=== PATIENT | male | born 1940 | race Caucasian/White ===

== ENCOUNTER 2020-06-05 05:11 | Observation (INO) ==
--- NOTE | 2020-05-11 08:44 | PAT Medication Instructions ---
Medication Instructions Date of Service May 11, 2020 Home Medications atorvastatin 40 mg PO PM lisinopril-hydrochlorothiazide 1 tab PO QPM Take evening before surgery atorvastatin 40 mg PO PM lisinopril-hydrochlorothiazide 1 tab PO QPM NOTHING TO EAT OR DRINK AFTER MIDNIGHT. Other Notes If you have any questions please call us at [phone] or [phone] or [phone] or [phone]
--- NOTE | 2020-05-11 10:23 | Anesthesiology Consultation ---
Date of Service May 11, 2020 Assessment & Plan (1) Encounter for pre-operative examination: COVID Status: As of 05/11 assessment, patient denies travel to endemic area, known exposure/sick contacts, or symptoms of COVID19. Patient instructed that they and their household members must follow strict social distancing guidelines, wear a mask in public and avoid travel for 14 days prior to surgery. Preoperative COVID19 testing to be completed prior to surgery per surgeon's arra ngements. Patient made aware to self-isolate as much as possible between COVID testing and surgery. Chart Review Chart Review: Acceptable Risk for Surgery (pending pcp clearance 05/15 ) and Patient seen in Pre Admission Testing Teaching & Discussion Instructed NPO after midnight before surgery, except medications with 15 cc of water. Medication instructions provided according to the PAT guidelines. History Surgery Operation Date: 06/05/20 07:00 Proposed Procedures p Left Anterior Total Hip Arthroplasty - Ozzie Dietz DO Height/Weight Height: 5 ft 10 in Weight: 94.3 kg Allergies Allergy/AdvReac Type Severity Reaction Status Date / Time No Known Allergies Allergy Verified 04/28/20 14:16 Medications Home Medications Medication Instructions Recorded Confirmed Last Taken atorvastatin 40 mg PO PM 04/28/20 04/28/20 Unknown lisinopril-hydrochlorothiazide 1 tab PO QPM 04/28/20 04/28/20 Unknown Past Medical History Medical History Arthritis History of prostate cancer s/p prostatectomy Hyperlipidemia Hypertension Exercise / Class Metabolic Activity II 4-5 Yardwork/Stairs/Walk up hill (Prior to this level of severity of hip pain, pt was doing yard work, no SOB or CP with 1 FOS) Past Surgical History Surgical History 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 Physical Exam Vital Signs BP: 127/77 P: 86bpm SPO2: 95% RA T: 98.2 F R: 16 ENMT Mouth: + edentulous Thyromental Distance: > or= 3.5 Finger Breadths Mallampati Class: I Neck + short neck, + limited neck extension (mildly) and + facial hair (short chandler) Respiratory normal respiratory effort Auscultation: lungs clear to auscultation bilaterally Cardiovascular Rate/Rhythm: regular rate and regular rhythm Heart Sounds: + murmur (?very soft systolic) Vessels: no carotid bruit Extremities: no edema Testing Laboratory Results 05/11/20 10:35 05/11/20 10:35 PT 10.3 Seconds (9.0-12.0) 05/11/20 10:35 INR 1.0 (0.9-1.1) 05/11/20 10:35 APTT 27.9 Seconds (21.0-31.0) 05/11/20 10:35 Hemoglobin A1c 6.2 % (4.5-5.6) H 05/11/20 10:35 Urine Color Yellow 05/11/20 10:35 Urine Appearance Clear (Clear) 05/11/20 10:35 Urine pH 5.5 (4.5-7.5) 05/11/20 10:35 Ur Specific [place] 1.017 (1.000-1.030) 05/11/20 10:35 Urine Protein Negative (Negative) 05/11/20 10:35 Urine Glucose (UA) Negative (Negative) 05/11/20 10:35 Urine Ketones Negative (Negative) 05/11/20 10:35 Urine Nitrite Negative (Negative) 05/11/20 10:35 Ur Leukocyte Esterase Negative (Negative) 05/11/20 10:35 Blood Type A Positive 05/11/20 10:35 Antibody Screen NEGATIVE 05/11/20 10:35 Electrocardiogram Date: 05/11/20 Findings: + NSR @ (79bpm) Left axis deviation. NSIVCD. Chest X-Ray Date: 05/11/20 1. Mild cardiac enlargement with no active disease in the chest. 2. 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 Clinical correlation will be required. *SpO2 WNL @ PAT. This result was faxed to PCP for continuity of care, to be reviewed at pre-op appointment 05/15.
--- NOTE | 2020-05-11 11:06 | XRay Report ---
TWO VIEW CHEST CLINICAL HISTORY: Preoperative examination. FINDINGS: PA and lateral chest radiographs are obtained. No prior studies are available for compariso n at the time of dictation. The heart is mildly enlarged noting atherosclerotic calcification of the thoracic aorta. The pulmonary vasculature is noncongested. Bilateral calcified pleural plaques are i dentified. Scarring/atelectasis is seen at the lung bases. No airspace consolidation or pleural effus ion is seen. There is no pneumothorax. The skeletal structures are osteopenic. The bony thorax appear s intact. Degenerative changes noted in the thoracic spine. IMPRESSION: 1. Mild cardiac enlargement with no active disease in the chest. 2. 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 Clinical cor relation will be required. ACT 112: Negative or not required by law. Electronically signed by: Nikhil North M.D. 05/11/2020 11:05 AM
[2020-05-11 12:14] LABS: Basophils # (auto) 0.04 K/uL (0-0.2); Basophils % (auto) 0.4 %; Eosinophils # (auto) 0.42 K/uL (0-0.5); Eosinophils % (auto) 4.7 %; Hematocrit (blood only) 44.2 % (42-52); Hemoglobin 15.4 g/dL (14.0-18.0); Immature Granulocytes # (auto) 0.05 K/uL (0.00-0.02); Immature Granulocytes % (auto) 0.6 %; Lymphocytes # (auto) 1.28 K/uL (1.2-3.4); Lymphocytes % (auto) 14.2 %; Mean Corpuscular Hemoglobin 31.6 pg (25-34); Mean Corpuscular Hgb Conc 34.8 g/dL (32-36); Mean Corpuscular Volume 90.8 fL (80-100); Mean Platelet Volume 9.2 fL (7.4-10.4); Monocytes # (auto) 0.92 K/uL (0.11-0.59); Monocytes % (auto) 10.2 %; Neutrophils # (auto) 6.31 K/uL (1.4-6.5); Neutrophils % (auto) 69.9 %; Platelet Count 310 K/uL (130-400); RDW Coefficient of Variation 13.4 % (11.5-14.5); RDW Standard Deviation 44.3 fL (36.4-46.3); Red Blood Count 4.87 M/uL (4.7-6.1); White Blood Count 9.02 K/uL (4.8-10.8)
[2020-05-11 12:15] LABS: Appearance Urine Clear (Clear); Bilirubin Urine Negative (Negative); Blood Urine Negative (Negative); Color Urine Yellow; Glucose Urine UA Negative (Negative); Ketones Urine Negative (Negative); Leukocyte Esterase Urine Negative (Negative); Nitrite Urine Negative (Negative); Protein Urine Negative (Negative); Specific Gravity Urine 1.017 (1.000-1.030); Urobilinogen Urine Negative (Negative); pH Urine 5.5 (4.5-7.5)
[2020-05-11 12:25] LABS: Partial Thromboplastin Time 27.9 Seconds (21.0-31.0); Prothrombin Time 10.3 Seconds (9.0-12.0)
[2020-05-11 12:45] LABS: Estimated Average Glucose 131 mg/dl; Hemoglobin A1C 6.2 % (4.5-5.6)
[2020-05-11 13:35] LABS: Albumin Level 3.8 gm/dl (3.4-5.0); BUN Creatinine Ratio 10.2 (10-20); Creatinine Clr Calc Pharmacy 59.6 ml/min; Est GFR (Non-African American) 60.4; Potassium 4.3 mmol/L (3.5-5.1)
--- NOTE | 2020-05-11 17:53 | Electrocardiogram Report ---
Test Reason : Blood Pressure : / mmHG Vent. Rate : 079 BPM Atrial Rate : 079 BPM P-R Int : 178 ms QRS Dur : 122 ms QT Int : 398 ms P-R-T Axes : 072 -51 052 degrees QTc Int : 456 ms Normal sinus rhythm Left axis deviation Non-specific intra-ventricular conduction delay Abnormal ECG No previous ECGs available Confirmed by Taiwo Padilla ([id number]) on 05/11/2020 5:53:12 PM Referred By: Ozzie Dietz Confirmed By:Rohit Padilla
--- NOTE | 2020-06-03 09:33 | History & Physical Report ---
Date of Service June 05, 2020 Assessment & Plan (1) Degenerative joint disease of left hip: I have indicated the patient for left anterior total hip replacement. The risks, benefits and complications of surgery were explained to the patient which include but not limited to infection, acute blood loss, DVT/PE, injury to nerves, vessels, bone, soft tissue, arthrofibrosis, chronic pain, failure of the prosthesis, hip dislocation, leg length discrepancy, need for additional surgery, cardiac and pulmonary events and . The patient wished to proceed with surgery and informed consent was obtained at this time. We will plan for 325mg ASA BID post-operatively for DVT prophylaxis. Upon discharge the patient will be discharged home with home health services. Appropriate clearances by PCP were obtained. Patient is asymptomatic for UTI. History of Present Illness Chief Complaint: Left hip Pain/DJD Primary Care Provider: Earle Bush MD The patient is a 79 year old male who presents with complaints of severe left hip pain and DJD. The patient has failed outpatient conservative treatments to this point which included NSAIDS, home exercise/walking program, activity modification, patient declined further conservative treatments including IA corticosteroid injections. The patient's pain and limited function have pr ogressed to the point where they severely hinder their activities of daily living and they no longer tolerate exercise programs. They are requesting to proceed with total hip replacement surgery. 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 H/O prostatectomy History of cataract surgery R/L History of colonoscopy WITH POLYP EXCISION History of herniorrhaphy R/L Social History Smoking Status: Former smoker Smoking End Date: QUIT 15 YRS AGO; Second Hand Exposure: No; Do You Dip or Chew Tobacco: No; Hx Alcohol Use: No Hx Substance Use: No Preferred Language: Croatian Communication Ability: Effective Supervisor Gear Repair Required: No Beliefs That Will Affect Care: None Current Living Situation: Spouse Other Information That Helps Us Care for You: No Feels Safe at Home: Yes Safety Concerns: Feels Safe At This Time Assistive Devices: Glasses Review of Systems Review of Systems: All systems reviewed & are unremarkable except as noted in HPI & below Constitutional: as per Subjective / HPI Physical Exam Physical Exam: LLE NVSI +EHL/FHL/TA/GS SILT grossly, +2 DP pulse, compartments soft NT, limited painful ROM of the hip, antalgic gait. Constitutional: WD/WN, vitals as above Eyes: PERRL, conjunctivae normal, anicteric sclerae ENMT: external ear and nose normal, oropharynx normal Neck: trachea midline, no thyromegaly Respiratory: normal respiratory effort, lungs clear to auscultation Cardiovascular: RRR, no murmur, no edema Gastrointestinal (Abdomen): normal bowel sounds, soft, nontender, no hepatosplenomegaly Musculoskeletal: no cyanosis or clubbing, extremities motor strength 5/5 Skin: no rashes, warm and dry Neurologic: patellar DTR's 2+ bilat, sensation intact Psychiatric: A+Ox3, euthymic affect Lymphatic: no cervical or axillary lymphadenopathy Results & Data Results & Data ([facility]) Diagnostic Findings Multiple views of the hip demonstrates severe DJD with complete loss of the joint space. +osteophytes, +sclerosis, +subchondral cysts. Pre Admission Testing Addendum Laboratory Results 05/11/20 10:35 05/11/20 10:35 PT 10.3 Seconds (9.0-12.0) 05/11/20 10:35 INR 1.0 (0.9-1.1) 05/11/20 10:35 APTT 27.9 Seconds (21.0-31.0) 05/11/20 10:35 Hemoglobin A1c 6.2 % (4.5-5.6) H 05/11/20 10:35 Urine Color Yellow 05/11/20 10:35 Urine Appearance Clear (Clear) 05/11/20 10:35 Urine pH 5.5 (4.5-7.5) 05/11/20 10:35 Ur Specific [place] 1.017 (1.000-1.030) 05/11/20 10:35 Urine Protein Negative (Negative) 05/11/20 10:35 Urine Glucose (UA) Negative (Negative) 05/11/20 10:35 Urine Ketones Negative (Negative) 05/11/20 10:35 Urine Nitrite Negative (Negative) 05/11/20 10:35 Ur Leukocyte Esterase Negative (Negative) 05/11/20 10:35 Blood Type A Positive 05/11/20 10:35 Antibody Screen NEGATIVE 05/11/20 10:35 05/11/20 10:35 Urine Culture - Final Urine,Clean Catch Alpha strep. not enterococcus
[2020-06-05] MEDS ORDERED: GABAPENTIN 300 MG CAP PO SCH (06:00)
[2020-06-05] MEDS ORDERED: TRANEXAMIC ACID 1,000 MG **IV Intra-op IV SCH (06:00)
[2020-06-05] MEDS ORDERED: TRANEXAMIC ACID 1,000 MG **IV Pre-op IV SCH (06:00)
[2020-06-05] MEDS ORDERED: ACETAMINOPHEN 500 MG TAB PO SCH (06:00)
[2020-06-05] MEDS ORDERED: METOCLOPRAMIDE HCL 10 MG TABLET PO SCH (06:00)
[2020-06-05] MEDS ORDERED: dexAMETHasone 4 MG TAB PO SCH (06:00)
[2020-06-05] MEDS ORDERED: ROPIVACAINE 0.5% HCL/PF 150 MG, BUPIVACAINE 0.5% MPF 30 ML, EPINEPHrine 30MG/30ML (OR U... INSTIL SCH (06:00)
[2020-06-05] MEDS ORDERED: LR 500ML BOLUS, THEN 15ML/HR IV SCH (06:00)
[2020-06-05] MEDS ORDERED: ceFAZolin 2000MG 2,000 MG/15 ML SYR IV SCH (06:00)
[2020-06-05] MEDS ORDERED: FAMOTIDINE 20 MG TAB PO SCH (06:00)
[2020-06-05] MEDS ORDERED: CeleBREX 200 MG CAP PO SCH (06:00)
[2020-06-05] MEDS ORDERED: BUPIVACAINE 0.5 % 5 MG/1 ML PF 10ML VIAL ONE (06:29)
[2020-06-05] MEDS ORDERED: PROPOFOL IV EMULSION 10 MG/ML 20 ML VIAL IV ONE ×2 (06:33→09:07)
[2020-06-05] MEDS ORDERED: MIDAZOLAM HCL 1 MG/ML 2ML VIAL ONE (06:33)
[2020-06-05] MEDS ORDERED: LIDOCAINE HCL 2% 2 ML VIAL/AMP(20MG/ML) INFIL ONE (06:33)
[2020-06-05] MEDS ORDERED: ORTHO JOINT ANESTHETIC ONE (06:36)
[2020-06-05] MEDS ORDERED: BACITRACIN INJ 50,000 UNIT VIAL ONE (06:36)
--- NOTE | 2020-06-05 06:43 | History & Physical Bridge Note ---
Date of Service June 05, 2020 History & Physical Bridge Note I have examined the patient, reviewed the History & Physical and in the interval since the performance of the History & Physical I have noted the following changes of clinical significance: no changes noted
[2020-06-05] MEDS ORDERED: ATROPINE SULFATE 0.1 MG/ML 10ML SYR IV PRN (06:54)
[2020-06-05] MEDS ORDERED: ePHEDrine sulfate 50 MG/ML AMP IV PRN (06:54)
[2020-06-05] MEDS ORDERED: fentaNYL citrate 100 MCG/2 ML VIAL IV PRN (06:54)
[2020-06-05] MEDS ORDERED: ONDANSETRON INJ 2 MG/ML 2 ML VIAL IV PRN ×2 (06:54→11:06)
[2020-06-05] MEDS ORDERED: PHENYLEPHRINE 100MCG/ML 5ML SYR ONE (07:47)
[2020-06-05] MEDS ORDERED: ePHEDrine sulfate 50 MG/ML SYR ONE (08:44)
--- NOTE | 2020-06-05 09:11 | Post Operative Brief Note ---
Immediate Post Op Note v1 Date of Surgery June 05, 2020 Pre & Post Diagnosis Operation Date: 06/05/20 07:00 Pre-Op Diagnosis: Unilateral Primary Osteoarthritis left hip Post-Op Diagnosis: Unilateral Primary Osteoarthritis left hip I identified the patient and participated in the time-out.: Yes Procedure Operation Date: 06/05/20 07:00 Actual Procedures p Left Anterior Total Hip Arthroplasty - uncemented(Left) - Ozzie Dietz DO Surgeon Ozzie Dietz DO Patient Transportation Driver Tank Rios Estimated Blood Loss 170 Findings Consistent with Post-Op Diagnosis Fluids 1500 cc LR Specimens femoral head Anesthesia Type Spinal MAC Complications none Disposition Disposition: Recovery Room Overlapping Procedure I was present for: the critical portions of procedure. I was immediately available: during the entire case. Back up surgeon: was not required during procedure.
--- NOTE | 2020-06-05 09:15 | Operative Report ---
Post Operative Report Pre & Post Diagnosis Operation Date: 06/05/20 07:00 Pre-Op Diagnosis: Unilateral Primary Osteoarthritis left hip Post-Op Diagnosis: Unilateral Primary Osteoarthritis left hip I identified the patient and participated in the time-out.: Yes Procedure Operation Date: 06/05/20 07:00 Actual Procedures p Left Anterior Total Hip Arthroplasty - uncemented(Left) - Ozzie Dietz DO Surgeon Ozzie Dietz DO Industrial Truck Mechanic Tank Rios Estimated Blood Loss 170 Findings Consistent with Post-Op Diagnosis Specimens Femoral head Anesthesia Type Spinal MAC Complications none Disposition Disposition: Recovery Room Indications The patient is a 79-year-old male who presents with severe progressive left hip DJD who has failed outpatient conservative treatments. I indicated the patient for a total hip replacement and the risks and benefits were explained in detail which included but not limited to infection, bleeding, blood clot, damage to surrounding bone, nerves, vessels, soft tissue, hip dislocation, failure of the prosthesis, leg length discrepancy, need for additional surgery and . The patient agreed to proceed with replacement of the hip and informed consent was obtained. Appropriate clearances were obtained. Description of Procedure COMPONENTS USED: [employer] hip system: Acetabulum size 52, femur size 5 high offset, femoral head 36-3, liner 52x36, acetabular screw 25 mm x 1. DESCRIPTION OF PROCEDURE: Following satisfactory spinal anesthesia, the patient was placed supine on the OR table. The right leg was placed in the well leg mann and the left leg in the traction device. The left leg was prepared with ChloraPrep and draped sterilely. A surgical timeout was performed, patient identified and site yolanda verified. Appropriate antibiotics were given. A standard anterior approach in the interval between the sartorius and tensor muscles was performed. Dissection was carried down through subcutaneous tis sues. Electrocautery was utilized for hemostasis. Circumflex femoral vessels were identified, tied and ligated. The anterior capsular fat pad was removed and the capsulotomy was performed revealing the arthritic femoral neck and head. A femoral neck cut was made with reciprocating saw and the bone fragments removed. The acetabular self-retraining retractor was placed. Acetabular reaming was completed under fluoroscopic guidance, a 52 shell was impacted into an anatomic position and secured with a dome screw. Local anesthetic was placed and following irrigation, the polyethylene liner was placed. The femur was placed into position of external rotation, extension and adduction. Femoral canal was prepared up to the size 5 high offset. Trial reduction with a 36-3 neck length head showed good soft tissue tension, leg lengths restored, and good fit and fill of the proximal canal using fluoroscopic landmarks. The hip was dislocated. The trial component was removed. The final implant was placed. The hip was irrigated with sterile saline solution and reduced. A Betadine soak was performed. After 3 minutes, the hip was once more irrigated with copious sterile saline solution with bacitracin. Cathie-incisional soft tissue was injected utilizing [place] [employer]omix which includes a combination of Ropivicaine 0.5% 150mg, Bupivicaine 0.5%/Epinephrine 1:200,000 30ml, Toradol 30mg, Dexamethasone 4mg, Ketamine 10mg, Clonidine 100mcg and NSS 30ml solution. The capsule was then closed with 1-0 Vicryl interrupted figure of eight sutures. The fascia was closed with a running suture of #1 Vicryl, the subcutaneous tissues with 2-0 Vicryl and the skin with a running subcuticular stitch of 3-0 V-Loc. Dermabond prineo and a dry dressing were applied. The patient tolerated the procedure well and was transported to PACU in stable condition. Due to the complex nature of the procedure, the entire surgery was performed with the operational assistance of Tank rios PA-C. The medical office assistant instructor, under direct supervision, was involved in the actual performance of all aspects of the surgical procedure including patient positioning, hemostasis, tissue retraction, instrument management and wound closure. I attest to the content of the Intraoperative Record and any orders documented therein. Any exceptions are noted below.
--- NOTE | 2020-06-05 09:22 | Fluoroscopy Report ---
FL hip LT 1V CLINICAL HISTORY: LEFT ANTERIOR HIP COMPARISON STUDY: None. FLUOROSCOPY TIME: 53 seconds. FINDINGS: 2 fluoroscopic spot images of the left hip demonstrate a left total arthroplasty. The hardw are is intact. No fracture or dislocation. IMPRESSION: Fluoroscopy provided for left total hip arthroplasty. ACT 112: Negative or not required by law. Electronically signed by: Mak Rust M.D. 06/05/2020 9:21 AM
--- NOTE | 2020-06-05 10:11 | XRay Report ---
XR hip 1V LT w pelvis HISTORY: 79 years-old Male IN PACU - A/P PELVIS and LATERAL HIP left hip total joint arthroplasty COMPARISON: Fluoroscopic images of the left hip of same day TECHNIQUE: AP view of the pelvis with 2 views of the left hip FINDINGS: Moderate right hip osteoarthritis. Left hip total joint arthroplasty demonstrates satisfactory alignm ent. No acute fracture or unexpected opaque foreign body. Expected postsurgical soft tissue swelling and deep tissue air. IMPRESSION: Left hip total joint arthroplasty with expected postoperative changes. ACT 112: Negative or not required by law. The above report was generated using voice recognition software. It may contain grammatical, syntax o r spelling errors. Electronically signed by: Morgan Renee M.D. 06/05/2020 10:10 AM
--- NOTE | 2020-06-05 10:27 | Anesthesiology Progress Note ---
Date of Service June 05, 2020 Anesthesia Post Procedure Vital Signs Vital Signs: Temp Pulse Pulse Resp BP BP Pulse Ox 06/05/20 10:10 84 16 107/74 96 06/05/20 10:00 81 17 104/71 96 06/05/20 09:50 82 20 110/62 98 06/05/20 09:40 87 20 101/64 97 06/05/20 09:30 87 17 111/69 98 06/05/20 09:22 97.2 F L 95 H 19 95/65 L 95 06/05/20 06:25 97.9 F 70 95 H 145/86 H 95 06/05/20 05:37 98.2 F 82 95 H 154/88 H 95 Transfer of Care Handoff Completed per policy Notes Mental Status: alert / awake / arousable and participated in evaluation Patient Amnestic to Procedure: Yes Nausea / Vomiting: adequately controlled Pain: adequately controlled Airway Patency, RR, SpO2: stable & adequate BP & HR: stable & adequate Hydration State: stable & adequate Neuraxial Anesthesia: was administered and sensory block is resolving Anesthetic Complications: no major complications apparent and Pt Satisfied with anesthetic care
[2020-06-05] MEDS ORDERED: diphenhydrAMINE Capsule 25 MG CAP PO PRN (11:06)
[2020-06-05] MEDS ORDERED: MAGNESIUM HYDROXIDE SUSP 30 ML UDC PO PRN (11:06)
[2020-06-05] MEDS ORDERED: METOCLOPRAMIDE HCL INJ 5 MG/ML 2 ML VIAL IV PRN (11:06)
[2020-06-05] MEDS ORDERED: diphenhydrAMINE 50 MG/ML VIAL IV PRN (11:06)
[2020-06-05] MEDS ORDERED: bisacodyL 10 MG SUPP PR PRN (11:06)
[2020-06-05] MEDS ORDERED: HYDROmorphone INJ 0.5 MG/0.5 ML SYR IV PRN (11:06)
[2020-06-05] MEDS ORDERED: NALOXONE HCL 0.4 MG/1 ML VIAL/CARP IV PRN (11:06)
[2020-06-05] MEDS ORDERED: oxyCODONE HCL IR 5 MG TAB (IMMEDIATE RELEASE) PO PRN (11:06)
[2020-06-05] MEDS: SODIUM CHLORIDE 0.9% 1000ML 1,000 ML IV SCH ×2 (11:17→22:56)
[2020-06-05] MEDS: KETOROLAC TROMETHAMINE 15 MG/ML VIAL IV SCH ×3 (11:19→23:21)
--- NOTE | 2020-06-05 12:57 | Orthopedic Progress Note ---
Date of Service June 05, 2020 Assessment & Plan (1) Degenerative joint disease of left hip: Status post left anterior total hip arthroplasty -Ancef x24 -DVT prophylaxis: SCDs, teds, ASA twice daily -Weight-bear as tolerated left lower extremity -PT/OT -Postoperative x-ray demonstrates a well aligned well fixed total hip prosthesis without fracture or dislocation -A.m. lab -DC planning Admission and Anticipated Discharge Date Admission Date: June 05, 2020 Subjective Post Operative Progress Note Patient seen sitting up in bed eating lunch, comfortable, denies complaints, pain well controlled, no acute issues. Review of Systems Review of Systems: All systems reviewed & are unremarkable except as noted in HPI & below Constitutional: as per Subjective / HPI Physical Exam Physical Exam: LLE NVSI +EHL/FHL/TA/GS SILT grossly, +2 DP pulse, compartments soft NT, dressing cdi. Constitutional: WD/WN, vitals as above Results & Data ([facility]) Vital Signs (Past 12 Hours) Vital Signs Temp Pulse Pulse Pulse Resp BP BP 06/05/20 12:05 78 17 127/75 06/05/20 11:41 36.4 C L 79 16 117/72 06/05/20 11:10 36.5 C 79 17 110/68 06/05/20 10:40 36.4 C L 79 18 103/64 06/05/20 10:30 81 21 112/70 06/05/20 10:20 81 20 96/61 L 06/05/20 10:10 84 16 107/74 06/05/20 10:00 81 17 104/71 06/05/20 09:50 82 20 110/62 06/05/20 09:40 87 20 101/64 06/05/20 09:30 87 17 111/69 06/05/20 09:22 36.2 C L 95 H 19 95/65 L 06/05/20 06:25 36.6 C 70 95 H 145/86 H 06/05/20 05:37 36.8 C 82 95 H 154/88 H Pulse Ox 06/05/20 12:05 98 06/05/20 11:41 96 06/05/20 11:10 97 06/05/20 10:40 95 06/05/20 10:30 96 06/05/20 10:20 95 06/05/20 10:10 96 06/05/20 10:00 96 06/05/20 09:50 98 06/05/20 09:40 97 06/05/20 09:30 98 06/05/20 09:22 95 06/05/20 06:25 95 06/05/20 05:37 95
[2020-06-05] MEDS: ACETAMINOPHEN 500 MG TAB PO SCH ×2 (13:43→21:25)
[2020-06-05] MEDS: ceFAZolin 2000MG 2,000 MG/15 ML SYR IV SCH ×2 (14:12→23:21)
[2020-06-05] MEDS ORDERED: SENNA 8.6 MG TAB PO SCH (21:00)
[2020-06-05] MEDS ORDERED: LISINOPRIL/HCTZ 10/12.5MG TAB PO SCH (21:00)
[2020-06-05] MEDS ORDERED: ATORVASTATIN 40 MG TAB PO SCH (21:00)
[2020-06-05] MEDS: DOCUSATE SODIUM 100 MG CAP PO SCH (21:25)
[2020-06-06] MEDS: ACETAMINOPHEN 500 MG TAB PO SCH ×2 (05:55→14:23)
[2020-06-06] MEDS: KETOROLAC TROMETHAMINE 15 MG/ML VIAL IV SCH ×2 (05:55→12:19)
[2020-06-06 06:26] LABS: Basophils # (auto) 0.01 K/uL (0-0.2); Basophils % (auto) 0.1 %; Immature Granulocytes # (auto) 0.07 K/uL (0.00-0.02); Immature Granulocytes % (auto) 0.4 %; Lymphocytes # (auto) 1.02 K/uL (1.2-3.4); Lymphocytes % (auto) 5.7 %; Mean Corpuscular Hemoglobin 30.4 pg (25-34); Mean Corpuscular Hgb Conc 34.2 g/dL (32-36); Mean Platelet Volume 9.3 fL (7.4-10.4); Monocytes % (auto) 9.5 %; Neutrophils # (auto) 15.06 K/uL (1.4-6.5); Neutrophils % (auto) 84.3 %; Platelet Count 280 K/uL (130-400); RDW Coefficient of Variation 13.3 % (11.5-14.5); RDW Standard Deviation 43.3 fL (36.4-46.3); Red Blood Count 4.27 M/uL (4.7-6.1); White Blood Count 17.86 K/uL (4.8-10.8)
[2020-06-06 07:02] LABS: BUN Creatinine Ratio 18.2 (10-20); Calcium 8.6 mg/dl (8.5-10.1); Creatinine Clr Calc Pharmacy 61.6 ml/min; Est GFR (African American) 73.1; Est GFR (Non-African American) 63.1; Potassium 3.7 mmol/L (3.5-5.1)
--- NOTE | 2020-06-06 07:13 | Orthopedic Progress Note ---
Date of Service June 06, 2020 Assessment & Plan (1) Degenerative joint disease of left hip: Status post left anterior total hip arthroplasty POD#1 -Ancef x24 -DVT prophylaxis: SCDs, teds, ASA twice daily -Weight-bear as tolerated left lower extremity -PT/OT -Postoperative x-ray demonstrates a well aligned well fixed total hip prosthesis without fracture or dislocation -A.m. lab - as above, hgb 13.0 -DC planning - home with Admission and Anticipated Discharge Date Admission Date: June 05, 2020 Subjective Post Operative Progress Note Patient seen sitting up in bed eating lunch, comfortable, denies complaints, pain well controlled, no acute issues. Denies F/C/N/V/SOB/CP. Review of Systems Review of Systems: All systems reviewed & are unremarkable except as noted in HPI & below Constitutional: as per Subjective / HPI Physical Exam Physical Exam: LLE NVSI +EHL/FHL/TA/GS SILT grossly, +2 DP pulse, compartments soft NT, dressing cdi. Constitutional: WD/WN, vitals as above Results & Data ([facility]) Vital Signs (Past 12 Hours) Vital Signs Temp Pulse Resp BP BP Pulse Ox 06/06/20 03:11 36.6 C 73 18 151/70 H 96 06/05/20 23:55 36.6 C 77 18 157/93 H 94 06/05/20 20:00 36.6 C 89 16 153/91 H 93 Diagnostic Findings 06/06/20 06/06/20 Range/Units 06:06 06:06 WBC 17.86 H (4.8-10.8) K/uL RBC 4.27 L (4.7-6.1) M/uL Hgb 13.0 L (14.0-18.0) g/dL Hct 38.0 L (42-52) % MCV 89.0 (80-100) fL MCH 30.4 (25-34) pg MCHC 34.2 (32-36) g/dL RDW Std Deviation 43.3 (36.4-46.3) fL RDW Coeff of Jb 13.3 (11.5-14.5) % Plt Count 280 (130-400) K/uL MPV 9.3 (7.4-10.4) fL Immature Gran % (Auto) 0.4 % Neut % (Auto) 84.3 % Lymph % (Auto) 5.7 % [place] % (Auto) 9.5 % Eos % (Auto) 0.0 % Baso % (Auto) 0.1 % Neut # (Auto) 15.06 H (1.4-6.5) K/uL Lymph # (Auto) 1.02 L (1.2-3.4) K/uL [place] # (Auto) 1.70 H (0.11-0.59) K/uL Eos # (Auto) 0.00 (0-0.5) K/uL Baso # (Auto) 0.01 (0-0.2) K/uL Immature Gran # (Auto) 0.07 H (0.00-0.02) K/uL Sodium 133 L (136-145) mmol/L Potassium 3.7 (3.5-5.1) mmol/L Chloride 99 (98-107) mmol/L Carbon Dioxide 28 (21-32) mmol/L Anion Gap 6.0 (3-11) BUN 20 H (7-18) mg/dl Creatinine 1.10 (0.6-1.4) mg/dl Est Cr Clr Drug Dosing 61.6 ml/min Est GFR ( Amer) 73.1 Est GFR (Non-Af Amer) 63.1 BUN/Creatinine Ratio 18.2 (10-20) Glucose 111 H (70-99) mg/dl Calcium 8.6 (8.5-10.1) mg/dl
[2020-06-06] MEDS: DOCUSATE SODIUM 100 MG CAP PO SCH (08:45)
[2020-06-06] MEDS ORDERED: MULTIVITAMIN TAB PO SCH (09:00)
[2020-06-06] MEDS ORDERED: ASPIRIN 325 MG ECTAB PO SCH (09:00)
--- NOTE | 2020-06-06 10:27 | Anesthesiology Progress Note ---
Date of Service June 06, 2020 Anesthesia Post Procedure Vital Signs Vital Signs: Temp Pulse Pulse Resp BP BP Pulse Ox 06/06/20 07:00 36.5 C 69 18 149/85 H 95 06/06/20 03:11 36.6 C 73 18 151/70 H 96 06/05/20 23:55 36.6 C 77 18 157/93 H 94 06/05/20 20:00 36.6 C 89 16 153/91 H 93 06/05/20 16:01 74 16 97 06/05/20 14:08 36.4 C L 82 18 130/80 93 06/05/20 13:22 36.6 C 79 16 128/83 93 06/05/20 12:05 78 17 127/75 98 06/05/20 11:41 36.4 C L 79 16 117/72 96 06/05/20 11:10 36.5 C 79 17 110/68 97 06/05/20 10:40 36.4 C L 79 18 103/64 95 06/05/20 10:30 81 21 112/70 96 Notes Mental Status: alert / awake / arousable and participated in evaluation Patient Amnestic to Procedure: Yes Nausea / Vomiting: adequately controlled Pain: adequately controlled Airway Patency, RR, SpO2: stable & adequate BP & HR: stable & adequate Hydration State: stable & adequate Neuraxial Anesthesia: was administered and sensory block resolved Anesthetic Complications: no major complications apparent and Pt Satisfied with anesthetic care
--- NOTE | 2020-06-06 16:11 | Discharge Summary ---
Date of Service June 06, 2020 Admission HPI Per Admitting Provider The patient is a 79 year old male who presents with complaints of severe left hip pain and DJD. The patient has failed outpatient conservative treatments to this point which included NSAIDS, home exercise/walking program, activity modification, patient declined further conservative treatments including IA corticosteroid injections. The patient's pain and limited function have progressed to the point where they severely hinder their activities of daily living and they no longer tolerate exercise programs. They are requesting to proceed with total hip replacement surgery. Principal Diagnosis Left anterior total hip replacement -Left hip DJD Discharge Exam LLE NVSI +EHL/FHL/TA/GS SILT grossly, +2 DP pulse, compartments soft NT, dressing cdi. Constitutional WD/WN, vitals as above Discharge Data Allergies Allergy/AdvReac Type Severity Reaction Status Date / Time No Known Allergies Allergy Verified 06/05/20 05:25 Consultations 06/06/20 08:00 Consult Case Management - Discharge Planning Routine Procedures Performed Operation Date: 06/05/20 07:00 Actual Procedures p Left Anterior Total Hip Arthroplasty - uncemented(Left) - Ozzie Dietz DO Ordered Studies 06/05/20 07:00 FL fluoroscopy <1hr Routine FL hip LT 1V Routine Hospital Course (1) Degenerative joint disease of left hip: The patient is a 79 -year-old male who presents with long standing history of severe left DJD and failed outpatient conservative treatments. The patient's symptoms have progressed to the point where it has been difficult to perform even normal activities of daily living. I indicated the patient for a left anterior total hip arthroplasty, the risks, benefits and complications of the procedure include but not limited to infection, bleeding, damage to bone, nerves, vessels, surrounding soft tissue, may develop blood clots, loss of function, leg length discrepancy, dislocation, failure of the components, loosening of the components, the need for additional surgery and . The patient wished to proceed with surgery at this time and informed consent was obtained. Hospital Course: On 06/05/20 the patient was taken to the operating room, adequate anesthesia administered and underwent a left anterior total hip arthroplasty. The patient tolerated the procedure well and was taken to the PACU in stable condition. Post-operatively the patient was started on a DVT ppx medication and given appropriate IV antibiotics. Consults were placed to physical therapy, occupational therapy and case management. On POD#1, the patient did well overnight and their pain was well controlled. Labs were drawn and the Hgb was 13.0. The patient progressed well with PT. Dressings were changed at this time and the incision was clean, dry and intact. The patients hospital stay was relatively uneventful and they were deemed stable by the orthopedic team and consultants to be discharged home with HH on 06/06/20. Discharge Instructions: Upon discharge the patient may weight bear as tolerates through their operative extremity. They were instructed to keep the incision clean and dry at all t imes. The patient may shower but should not submerge the incision, avoid bathing, pools and hot tubs. The patient was given a script for pain medication and should take as instructed. The patient was given a script for DVT ppx 325mg ASA BID and should take as directed. The patient was instructed to not drive or travel for long distances until cleared to do so. If the patient develops any symptoms of fevers, chills, nausea, vomiting, increased redness, swelling, pain or drainage from the surgical site, they should notify the office and/or proceed to the nearest emergency room. The patient should follow up in 10-14 days after surgery for their routine post-operative follow-up appointment and should call the office, to confirm the date and time. Status post left anterior total hip arthroplasty POD#1 -Ancef x24 -DVT prophylaxis: SCDs, teds, ASA twice daily -Weight-bear as tolerated left lower extremity -PT/OT -Postoperative x-ray demonstrates a well aligned well fixed total hip prosthesis without fracture or dislocation -A.m. lab - as above, hgb 13.0 -DC planning - home with Total Time Total Time Spent Total Time Spent (In Minutes): 30 Discharge Plan Discharge Items Patient Disposition: Home - Home Health Services Reason For Visit: Unilateral Primary Osteoarthritis Discharge Diagnosis: Left anterior total hip replacement -Left hip DJD Condition on Discharge: Good Activity: Per Instructions section Lifting: Wait until after follow-up appointment Bathing: Keep incision dry Bathing Comment: No bathing, pools or hot tubs Sexual Activity: Wait until after follow-up appointment Exercise/Sports: Wait until after follow-up appointment Driving/Machine Use: No driving Weightbearing: Full weightbearing Non-emergency contact: Primary Care Provider and Surgeon Call non-emergency contact if: you have any medication questions, your symptoms worsen, your pain is not controlled, your pain is worsening, your pain is unusual for you, your pain is concerning for you, you have a fever, your temperature is above 101, your wound has increased redness, your wound has increased drainage and your wound pain has increased Follow-up/Referrals: Earle Bush MD [Primary Care Provider] - Diet: Regular Addtl Attending Provider Instructions: ACTIVITY RECOMMENDATIONS: SELF CARE INSTRUCTIONS AFTER TOTAL HIP REPLACEMENT : Direct Anterior Approach Until the incision and soft tissues around your hip have healed, there is a possibility that the hip prosthesis could dislocate. A. Hip flexion ( Up & Down out of chair or steps ) may be difficult. This is normal. B. Numbness in front of the thigh is also normal for a few weeks. C. Use hand rails when walking on stairs. D. Wear low heeled shoes with non-slip soles. E. Be sure that your floors are free of things that could trip you - throw rugs, electrical cords, small objects. Avoid wet and waxed floors, especially with crutches and canes. F. Try to walk several times a day with rest periods between. G. Continue with all the exercises taught to you in the hospital. Again, make walking a part of your daily routine. SPECIAL CARE INSTRUCTIONS: VERY IMPORTANT TO READ AND REVIEW A. You may still be at risk for phlebitis and blood clots. 1. Wear surgical stockings (SANDIE hose) for 2 weeks after surgery to improve circulation and reduce swelling. 2. Take Aspirin 325mg twice daily for 4 weeks or as directed by your doctor. This is your blood thinner. 3. High risk patients may be prescribed a stronger blood thinner if necessary. 4. If you are on Coumadin normally, your family doctor/golf starter and ranger should monitor your blood work. Expect a phone call the day of or the day after bloodwork is drawn to adjust your dosage. B. You must take antibiotics before having dental work, bladder, bowel and other surgery. Your doctor will provide you with a permanent card to carry describing precautions. C. Call [facility] if you have a fever, redness or swelling around the incision, cloudy drainage from incision, or sudden increase in pain in your hip, not relieved by your regular pain medication. D. Please call the office at if you have any concerns or questions about your operation or recovery. * YOU MAY SHOWER, NO TUB BATHS UNTIL CLEARED BY YOUR DOCTOR. - Keep an extra close eye on the top portion of your incision. Be sure to keep clean & dry. * WEAR SANDIE HOSE 20 HOURS PER DAY FOR 2 WEEKS. * YOU MAY PROGRESS FROM A WALKER, TO A CANE, TO INDEPENDENT AT YOUR OWN PACE. * MOST PATIENTS WILL HAVE HOME NURSING FOR THERAPY. IF YOU DECIDE TO DO OUTPATIENT PHYSICAL THERAPY, PLEASE SCHEDULE THIS 3 TIMES PER WEEK. * DERMABOND Prineo- This is a mesh tape dressing that is covered with glue. It should remain in place until the incision is properly healed, usually 10-14 days. This dressing is designed to naturally slough off. You may trim the excess mesh tape as it peels off. Incision may be briefly wet in a shower. Dry immediately by blotting with a clean, dry towel. Do not bath or swim until instructed by your doctor. Do not scratch, rub, or pick at the dressing. Do not apply any topical ointments or lotions until dressing is completely removed and/or instructed by your doctor. There may be a small piece of suture material at one end of your incision. Do not pull or trim this. If it is bothersome or catching on clothing, you may cover it with a band-aid. FOLLOW UP VISIT: If appointment is not already scheduled: Please call [facility] to make a follow-up appointment for 2 weeks after your surgery at . Pending Studies at Discharge: No Stand-Alone Forms: My [facility], Opioid Pain Management, Smoking Cessation Medications and DC Order Prescriptions: New celecoxib [Celebrex] 200 mg Capsule 200 mg PO BID PRN (Reason: pain/inflammation) Qty: 28 RF: 0 acetaminophen 500 mg Tablet 1,000 mg PO Q8 PRN (Reason: pain) Qty: 90 RF: 0 aspirin [Ecotrin] 325 mg Tablet,Delayed Release (Dr/Ec) 325 mg PO BID Qty: 56 RF: 0 oxycodone 5 mg Tablet 5 mg PO Q6H MDD 4 PRN (Reason: pain) Qty: 30 RF: 0 sennosides [Senokot] 8.6 mg Tablet 17.2 mg PO HS PRN (Reason: constipation) Qty: 28 RF: 0 Continued atorvastatin 40 mg Tablet 40 mg PO PM RF: 0 lisinopril-hydrochlorothiazide 10-12.5 mg Tablet 1 tab PO QPM RF: 0 Discharge Orders: Discharge Order (Routine); Ordered 06/06/20 Ordered By: Ozzie Dietz Admission Data Admit Date/Time: 06/05/20 09:28 Attending Provider: Ozzie Dietz Admit Provider: Ozzie Dietz Primary Care Provider: Earle Bush I. Other Interventions: Discharge Summary Assessment (RN) Last Done: 06/06/20 15:24
[2020-06-07] MEDS ORDERED: CeleBREX 200 MG CAP PO SCH (12:00)
== END 2020-06-06 16:31 | disposition home health service (06) ==
LOC: 3E 05:11 → ASU 05:11